=== PATIENT | female | born 1965 | race Caucasian/White ===

== ENCOUNTER → 2024-06-12 | Outpatient (CLI) | payer OTHER, SELFPAY ==
--- NOTE | 2024-06-12 14:21 | US_ITS ---
INDICATION: Possible pelvic mass during physical examination, History of hysterectomy EXAMINATION: Ultrasound US Pelvis Non-OB Complete TECHNIQUE: Transabdominal pelvic ultrasound was performed. Grayscale, spectral waveform, and color flow Doppler evaluation of the adnexa. COMPARISON: None. FINDINGS: UTERUS: Surgically absent. RIGHT OVARY: 1.8 x 1.5 x 1.0 cm. Non-enlarged, normal echogenicity. Normal color flow. LEFT OVARY: Not visualized due to size and overlying bowel gas. FREE FLUID: None. US/Pelvic (Non ) IMPRESSION: Status post hysterectomy. No identifiable pelvic mass. Electronically Signed: John Aguirre MD at 22:45 EST ,
== END | disposition home or self-care (01) ==
PROVIDERS: PCP Nurse Practitioner Family; Referring Provider Urology; Visit Provider Urology
DX: R19.00 Intra-abdominal and pelvic swelling, mass and lump, unspecified site (principal)
CPT/HCPCS: 76856

== ENCOUNTER → 2024-10-23 | Outpatient (CLI) | payer OTHER, SELFPAY ==
--- NOTE | 2024-10-23 08:59 | RAD_ITS ---
PROCEDURE: CHEST PA AND LATERAL, 10/23/2024 REASON FOR EXAM: COUGH TECHNIQUE: PA and lateral views of the chest were obtained. COMPARISON: None FINDINGS: Heart: Unremarkable. Mediastinum: Unremarkable. Lungs/pleura: No convincing focal consolidation allowing for chest wall attenuation. No pleural effusion or visible pneumothorax. Bones: Mild radiographically evident spondylosis. Lines and support devices: None. Other: RIGHT upper quadrant surgical clips. RAD/Chest PA and Lateral IMPRESSION: 1. No convincing or visible acute cardiopulmonary findings 2. Additional description as above. Reading Location: [id number]
== END | disposition home or self-care (01) ==
LOC: MTRAD 08:59
PROVIDERS: PCP Nurse Practitioner Family; Referring Provider Physician Assistant; Visit Provider Physician Assistant
DX: R05.9 Cough, unspecified (principal)
CPT/HCPCS: 71046

== ENCOUNTER → 2025-04-01 | Outpatient (CLI) | payer OTHER, SELFPAY ==
--- NOTE | 2025-04-01 13:33 | RAD_ITS ---
PROCEDURE: THORACIC SPINE 3 VIEWS 04/01/2025 REASON FOR EXAM: BACK PAIN TECHNIQUE: Procedure Code: RADSPT Modality: DX Procedure: THORACIC SPINE 3 VIEWS COMPARISON: None FINDINGS: Vertebrae: No vertebral fracture. Discs: Mild multilevel disc space narrowing. Alignment: Normal alignment. Other: RAD/Thoracic Spine 3 Views IMPRESSION: Multilevel disc space narrowing and mild spondylosis. Reading Location: [facility]
--- NOTE | 2025-04-01 13:33 | RAD_ITS ---
PROCEDURE: L/S SPINE MIN 4 VIEWS 04/01/2025 REASON FOR EXAM: BACK PAIN TECHNIQUE: Procedure Code: [id number] Modality: DX Procedure: L/S SPINE MIN 4 VIEWS COMPARISON: None FINDINGS: Curvature: Minimal dextroconvex scoliosis. Other findings: Disc space narrowing and spondylosis at the L1-L2 and L2-L3 levels. Mild disc space narrowing at the L4-L5 level. Other: Fecal material is seen throughout the colon. RAD/L/S Spine Min 4 Views IMPRESSION: Minimal dextroconvex scoliosis. Disc space narrowing and spondylosis worse at the L1-L2 and L2-L3 levels. Reading Location: [facility]
== END | disposition home or self-care (01) ==
LOC: MTRAD 13:31
PROVIDERS: PCP Nurse Practitioner Family; Referring Provider Physician Assistant Surgical; Visit Provider Physician Assistant Surgical
DX: S39.012A Strain of muscle, fascia and tendon of lower back, initial encounter (principal)
CPT/HCPCS: 72072; 72110; 87086; 87088